=== PATIENT | female | born 1990 | race African-American/Black ===

== ENCOUNTER 2016-11-05 07:00 | Inpatient (IN) | payer OTHER ==
--- NOTE | ~2016-11-05 | PN ---
Unit #: [id number] #: [id number] Patient: BRANDEE TYLER [id number] [facility] [address] [place] [address] [id number] MR#: [id number] NAME: BRANDEE TYLER ROOM: [facility] Age: 26 Sex: F Admission Date: 11/05/2016 : 1990 Attending Physician: Jackeline Ruiz M.D. Admitting Physician: Jackeline Ruiz M.D. Primary Care Physician: Primary Care Physician Della GUAN PROGRESS NOTES DATE November 07, 2016 DISCUSSION Ms. Tyelr is a 26-year-old white female, who was seen today and chart was reviewed and the case was discussed with the staff. The patient has been anxious, withdrawn, and rather seclusive to herself. Meanwhile, she has been cooperative with the treatment recommendations and has been taking medications and tolerating them fairly well with no reported side effects. MENTAL STATUS EXAMINATION Young white female, who was casually dressed with fair personal hygiene and appears to be in no acute distress or discomfort. She was awake and alert with intact orientation. Her mood was anxious with a congruent affect. The patient denies any suicidal or homicidal ideations. Her insight and judgment remain slightly impaired. TREATMENT PLAN 1. We will continue her on her current medications and treatment protocol, and will monitor her response to the medications, and make further adjustments as needed. 2. We will continue to followup. Dictated by... Kenneth Lerma/lui TD: 11/08/2016 12:22 JOB #: [id number] Unit #: [id number] #: [id number] Patient: BRANDEE TYLER PROGRESS NOTES Page 1 of 1 X Jackeline Ruiz MD PROGRESS NOTE
--- NOTE | ~2016-11-05 | HP ---
Unit #: [id number] #: [id number] Patient: BRANDE[facility]YLER [id number] [facility] [place] [address] [id number] MR#: [id number] NAME: BRANDEE TYLER ROOM: [facility] Age: 26 Sex: F Admission Date: 11/05/2016 : 1990 Attending Physician: Jackeline Ruiz M.D. Admitting Physician: Jackeline Ruiz M.D. Primary Care Physician: Primary Care Physician No HISTORY AND PHYSICAL HISTORY OF PRESENT ILLNESS The patient is a 26-year-old female who states she is admitted due to anxiety. PAST MEDICAL HISTORY None. PAST SURGICAL HISTORY None. SOCIAL HISTORY Positive for alcohol. ALLERGIES Penicillin. FAMILY HISTORY Noncontributory. REVIEW OF SYSTEMS CONSTITUTIONAL: No fever or chills. HEENT: Denies any sore throat, ear pain or runny nose. CARDIOVASCULAR: Denies chest pain, irregular heart rhythm or palpitations. CHEST: Denies shortness of breath or cough. No hemoptysis. GASTROINTESTINAL: Denies nausea, vomiting, diarrhea or chronic constipation. ENDOCRINE: Denies history of increased thirst or urination. No recent significant weight loss or gain. GENITOURINARY: Denies dysuria, frequency, or hematuria. SKIN: Denies any rashes. HEMATOLOGIC: Denies history of increased bleeding or bruising. MUSCULOSKELETAL: Denies any hot, swollen joints. No generalized muscle pain. NEUROLOGIC: Denies problems with vision or speech. No frequent, severe headaches. No numbness, tingling or weakness in any extremities. Denies loss of bladder or bowel control. CURRENT MEDICATIONS None. Unit #: [id number] #: [id number] Patient: BRANDEE TYLER PHYSICAL EXAMINATION GENERAL: Alert, oriented in no acute distress. VITAL SIGNS: Blood pressure 125/69, heart rate 97, respiration 16, temperature 98.7. HEIGHT: 5 feet 7 inches WEIGHT: 184 pounds SKIN: Burn scar to the right knee. Tattoo to the left knee, midline chest, right upper arm, right forearm, midline thoracic and lumbar spine and a callous to the left plantar surface. HEENT: Normocephalic. TMs not viewed. Oral and nasal passages clear. Conjunctivae clear. PERRLA. EOMs intact. NECK: Supple without lymphadenopathy or thyromegaly. HEART: Regular rate and rhythm without murmur. LUNGS: Clear. ABDOMEN: Soft, nontender, without masses or hepatosplenomegaly. : Not done. EXTREMITIES: No evidence of cyanosis, clubbing or edema. Moves all without focal deficit. NEUROLOGICAL: Grossly within normal limits. Cranial Nerves: II: Visual west are intact. III, IV AND : Extraocular movements are intact. Pupils are equal, round and reactive to light. V: Facial sensation is grossly normal. VII: Facial movements and expression are normal. VIII: Auditory acuity grossly intact. IX, X: Uvula is midline. Phonation is normal. XI: Patient shrugs shoulders and turns head normally. XII: Tongue protrudes in the midline. Sensory and Motor Function: Sensory and motor sensation is grossly normal. Motor: moves all extremities well. Coordination: Gait is normal. Deep Tendon Reflexes: Intact. IMPRESSION Psychiatric admission. RECOMMENDATIONS Psychiatric, per psychiatrist. MEDICAL: I see no contraindications to participating in facility's activities. MEDICAL PROGNOSIS Good. Dictated by... Chad Saucedo/moon TD: 11/06/2016 03:44 JOB #: [id number] Unit #: [id number] #: [id number] Patient: BRANDEE TYLER HISTORY AND PHYSICAL Page 1 of X Amy Diaz APR X HISTORY AND PHYSICAL
--- NOTE | ~2016-11-05 | PN ---
Unit #: [id number] #: [id number] Patient: BRANDEE TYLER [id number] [facility] [address] [place] [address] [id number] I MR#: [id number] NAME: BRANDEE TYLER ROOM: [facility] Age: 26 Sex: F Admission Date: 11/05/2016 : 1990 Attending Physician: Jackeline Ruiz M.D. Admitting Physician: Jackeline Ruiz M.D. Primary Care Physician: Primary Care Physician Della GUAN PROGRESS NOTES DATE 11/08/2016 DISCUSSION Ms. Tyler is a 26-year-old female who was seen today and chart was reviewed and case was discussed with the staff. She reports doing fairly well and has been showing improvement in depression and anxiety and denies any thoughts of wanting to herself. Meanwhile, she has been taking medications and tolerating them fairly well with no reported side effects. MENTAL STATUS EXAMINATION Young female who was casually dressed with fair personal hygiene and appears to be in no acute distress or discomfort. She was awake and alert with intact orientation. Her mood was anxious with congruent affect. She denies any suicidal or homicidal ideation. Her insight and judgement remains slightly impaired. TREATMENT PLAN 1. Will continue on current medications and treatment protocol. Will monitor her response to the medications and make further adjustments as needed. 2. Will continue to follow up. Dictated by... Kenneth Lerma/nicolas TD: 11/08/2016 21:42 JOB #: [id number] Unit #: [id number] #: [id number] Patient: BRANDEE TYLER PROGRESS NOTES Page 1 of 1 X Jackeline Ruiz MD X PROGRESS NOTE
--- NOTE | ~2016-11-05 | DS ---
Unit #: [id number] #: [id number] Patient: [facility] [id number] [facility] [address] [place] [address] [id number] MR#: [id number] NAME: BRANDEE POP ROOM: [facility] Age: 26 Sex: F Admission Date: 11/05/2016 : 1990 Discharge Date: 11/09/2016 Attending Physician: Jackeline Ruiz M.D. Primary Care Physician: Primary Care Physician No DISCHARGE SUMMARY IDENTIFYING DATA Ms. Pop is a 26-year-old single, white female who was brought to the hospital on 72-hours hold. DISCHARGE DIAGNOSES Psychiatric: Major depressive disorder, recurrent, moderate, without psychotic features; alcohol dependence, moderate. Medical: None. Stressors: Moderate psychosocial stressors. HISTORY OF PRESENT ILLNESS Please see initial psychiatric evaluation for details. PAST PSYCHIATRIC HISTORY Please see initial psychiatric evaluation for details. PAST MEDICAL HISTORY Please see initial psychiatric evaluation for details. HOSPITAL COURSE The patient was admitted to the adult psychiatric and chemical dependency unit at [facility] and was oriented to the hospital environment. Routine p.r.n. medications were initiated, and she was started back on her home medications. Medications were adjusted and she was closely monitored. She was taking the medications regularly and Risperdal and Celexa were able to show a fairly decent therapeutic response. Once the 72-hours hold , the patient was refusing to stay in the treatment any longer and was denying any suicidal ideations, intent, or plan and was not meeting criteria for involuntary psychiatric hospitalization and as such, it was decided that she will be discharged home and will continue treatment on an outpatient basis. DISCHARGE MEDICATIONS Risperdal 0.5 mg b.i.d. and Celexa 20 mg a day. DISCHARGE CONDITION Stable. PROGNOSIS Fair. Dictated by... Jackeline Ruiz M.D. Unit #: [id number] #: [id number] Patient: BRANDEE POP IAA/modl TD: 11/29/2016 14:05 JOB #: [id number] DISCHARGE SUMMARY Page 1 of 1 X Jackeline Ruiz MD X DISCHARGE SUMMARY
--- NOTE | ~2016-11-05 | PN ---
Unit #: [id number] #: [id number] Patient: BRANDEE TYLER [id number] [facility] [address] [place] [address] [id number] MR#: [id number] NAME: BRANDEE TYLER ROOM: [facility] Age: 26 Sex: F Admission Date: 11/05/2016 : 1990 Attending Physician: Jackeline Ruiz M.D. Admitting Physician: Jackeline Ruiz M.D. Primary Care Physician: Primary Care Physician Della GUAN PROGRESS NOTES DATE November 06, 2016 DISCUSSION Ms. Tyler is a 26-year-old white female, who was seen today and chart was reviewed and the case was discussed with the staff. She has been anxious, withdrawn, depressed, and seclusive to herself. Meanwhile, she has been cooperative with the treatment recommendations and she has been taking the medications and tolerating them fairly well with no reported side effects. MENTAL STATUS EXAMINATION Young white female, who was casually dressed with fair personal hygiene and appears to be in no acute distress or discomfort. She was awake and alert on interaction with intact orientation. Her mood is anxious with a congruent affect. The patient denies any suicidal or homicidal ideations. Her insight and judgment remain slightly impaired. TREATMENT PLAN 1. We will continue her on her current medications and treatment protocol, and will monitor her response to the medications, and make further adjustments as needed. 2. We will continue to followup. Dictated by... Kenneth Lerma/lui TD: 11/07/2016 15:40 JOB #: [id number] Unit #: [id number] #: [id number] Patient: BRANDEE TYLER ARCHIEGARY PROGRESS NOTES Page 1 of 1 X Jackeline Ruiz MD PROGRESS NOTE
--- NOTE | ~2016-11-05 | PA ---
Unit #: [id number] #: [id number] Patient: BRANDEE POP [id number] [facility] [address] [place] [address] [id number] I MR#: [id number] NAME: BRANDEE POP ROOM: P214 Age: 26 Sex: F Admission Date: 11/05/2016 : 1990 Date of Assessment: Attending Physician: Jackeline Ruiz M.D. Admitting Physician: Jackeline Ruiz M.D. Primary Care Physician: Primary Care Physician No PSYCHIATRIC ASSESSMENT DATE OF SERVICE 11/05/2016. IDENTIFYING DATA Ms. Pop is a 26-year-old, single, female who is a resident of [place], [place] and was transferred to us from [facility]. CHIEF COMPLAINT "I've been drinking." HISTORY OF PRESENT ILLNESS A 26-year-old, female with no previous records of being at [facility], though she has been active patient with local [facility], where she was recently seen last month and was brought into the Emergency Psychiatric Services today as a walk-in for chief complaint of suicidal and homicidal ideations and on the triage sheet, she stated "I have thoughts of killing myself and my boyfriend." Her blood alcohol level upon presentation was 0.114 and drug screen was negative and she was seen to be irritable in the beginning and was seen to be labile and tearful and that she believes that her medications are not stable and that as a result, she has had increasing depression, anxiety, and mood swings, irritability, and thoughts of wanting to harm herself or harm her boyfriend. She reports that she has had one previous attempts of suicide in 2013 while she was in custodial and reports that she is still having thoughts of killing herself and her boyfriend, but she does not actively have a plan and decided that her children are her only protective factor and that she has started believe that they would be better off without her because "I'm crazy." She did admit to drinking half of fifth approximately 4 days a week to calm her nerves and anxiety down, and was seen to have some significant withdrawal symptoms and was seen to be danger to self and others and as such, recommendation for inpatient level of care for safety and stabilization was made. SUBSTANCE ABUSE HISTORY The patient reports drinking a half of a fifth 4 times a week, but denies any other substance abuse issues. PAST PSYCHIATRIC HISTORY The patient has had history of outpatient psychiatric services, but currently she is not active in any treatment program, and reports that she has not been compliant with her medications and does not feel the medications are stable. Unit #: [id number] #: [id number] Patient: BRANDEE POP PAST MEDICAL HISTORY The patient's medical history is insignificant. ALLERGIES Penicillin. PERSONAL AND SOCIAL HISTORY A 26-year-old female who reports that she is single and unemployed, and lives with her 4 children and has poor social support system. MENTAL STATUS EXAMINATION Young female who was casually dressed with fair personal hygiene, appears to be in no acute distress or discomfort. She was awake and alert with impaired attention and concentration. Her mood was anxious and depressed with a congruent affect. Her speech was slow and restricted in content. She reports having suicidal or homicidal ideations. Her insight and judgment remain significantly impaired. DIAGNOSTIC IMPRESSION Psychiatric: Bipolar disorder, most recent episode depressed, recurrent, moderate, without psychotic features; alcohol dependence, moderate and acute withdrawals. Medical: None. Stressors: Moderate psychosocial stressors. TREATMENT PLAN 1. The patient has presented with history of mood disorder and substance abuse, and has been decompensating and will need inpatient hospitalization for safety and stabilization. We will start her back on her home medications. We will adjust the medications and monitor response. 2. Supportive therapy was provided to the patient. 3. Safe, structured, and nourishing environment will be provided. ESTIMATED LENGTH OF STAY 5 to 7 days. ABILITY TO HELP SELF Limited. WILLINGNESS TO HELP SELF The patient appears to be willing to help self. STRENGTHS 1. Communicative. 2. Cooperative. PROBLEMS 1. Chronic dysphoric symptoms. 2. Chronic chemical dependency. 3. Poor social support system. DISCHARGE CRITERIA This will be contingent upon the patient's ability to show resolution of her depression and anxiety, and her ability to go through detox without having any significant withdrawal symptoms and her ability to stay safe to herself, particularly after discharge from the hospital. Unit #: [id number] #: [id number] Patient: BRANDEE POP Dictated by... Jackeline Ruiz M.D. SOO/mary TD: 11/06/2016 07:24 JOB #: [id number] PSYCHIATRIC ASSESSMENT Page 1 of 1 X Jackeline Ruiz MD PSYCHIATRIC ASSESSMENT
[~2016-11-05 07:00] MED LIST: CELEXA PO; PRENATAL1 TA1 PO
[2016-11-06 09:46] LABS: BASOPHIL% 0.1 % (0-2.5); EOSINOPHIL# 0.4 X10e3 (0-0.7); EOSINOPHIL% 4.1 % (0.0-7.0); HEMATOCRIT 40.9 % (35.0-45.0); HEMOGLOBIN 13.4 gm/dL (12.0-16.0); LYMPHOCYTE# 2.3 X10e3 (1.0-3.5); LYMPHOCYTE% 20.8 % (17.0-45.0); MEAN CELL VOLUME 86.1 FL (83-96); MEAN CORPUSCULAR HEMOGLOBIN 28.2 PG (28-34); MEAN CORPUSCULAR HGB CONC 32.7 g/dL (30-36); MEAN PLATELET VOLUME 7.8 FL (6.5-11.5); MONOCYTE# 0.7 X10e3 (0-1.0); MONOCYTE% 6.3 % (3.0-12.0); NEUTROPHIL# 7.4 X10e3 (1.5-7.1); NEUTROPHIL% 68.7 % (40-75); PLATELET COUNT 244 X10e3 (140-420); RED BLOOD COUNT 4.75 X10e (3.90-5.30); RED CELL DISTRIBUTION WIDTH 14.7 % (11.0-15.5); WHITE BLOOD COUNT 10.8 X10e3 (4.0-10.5)
[2016-11-06 10:03] LABS: DIFF IND NO
[2016-11-06 10:09] LABS: ALBUMIN SERUM 3.8 g/dL (3.5-5.0); BILIRUBIN,TOTAL 0.7 mg/dL (0.2-2.0); CALCIUM SERUM 9.1 mg/dL (8.4-10.2); CREATININE SERUM 0.8 mg/dL (0.6-1.4); GLOM FILT RATE Estimated 116.4 mL/min (>60); POTASSIUM 4.1 mmol/L (3.5-5.1); PROTEIN TOTAL SERUM 6.8 g/dL (6.0-8.3)
== END 2016-11-09 11:11 | disposition left against medical advice (07) | DRG 885 ==
LOC: P2S 10:45
PROVIDERS: Psychiatry & Neurology Psychiatry
PROC: HZ2ZZZZ Detoxification Services for Substance Abuse Treatment (ICD-10-PCS; principal; 2016-11-05)
DX: F31.32 Bipolar disorder, current episode depressed, moderate (principal); R45.851 Suicidal ideations; Z91.14 Patient's other noncompliance with medication regimen; F10.230 Alcohol dependence with withdrawal, uncomplicated; Z88.0 Allergy status to penicillin
CPT/HCPCS: 80053; 85025; 86592